=== PATIENT | female | born 1965 | race Caucasian/White ===

== ENCOUNTER 2024-12-03 14:06 | Outpatient (REF) | payer OTHER, SELFPAY ==
--- NOTE | ~2024-12-03 | XR_ITS ---
EXAMINATION: XR KNEE, LEFT CLINICAL INFORMATION: PAIN IN LEFT KNEE,OSTEOARTHRITIS OF KNEE COMPARISON: None available. TECHNIQUE: AP view both knees in standing position. Lateral and swimmer's projection of the left knee. FINDINGS: There is joint space narrowing involving mostly the medial compartments both knees with marginal osteophyte formation at the femoral condyles and tibial plateaus as well as sclerosis along the articular surfaces. Small exostosis at the quadriceps tendon insertion. No acute cortical disruption or malalignment. No suprapatellar bursa joint effusion, left knee. No lytic or blastic lesions. XR/XR knee LT 4V IMPRESSION: Tricompartmental osteoarthrosis involving mostly the medial compartment. Electronically signed by: Marcos Eavns MD 12/03/2024 03:04 PM EDT
--- OUTSIDE RECORDS SUMMARY | 2024-12-03 15:28 | XMS_ITS | Clinical Summary ---
Author Organization [facility] Address [address] [place] [address] Care Team Providers Care Animal Cruelty Investigation Supervisor Name Role Phone Unavailable Primary Care Provider Unavailabl e Allergies Active Allergy Reactions Criticality Noted Date Comments Codeine Other (See Comments) 01/09/2021 I dont remember Medications Medication Sig Dispensed Refills Start Date End Date Status miSOPROStol (CYTOTEC) 200 MCG tablet Take 200 mcg by mouth 2 (two) times a day. 0 Active pregabalin (LYRICA) 75 MG capsule Take 75 mg by mouth 2 (two) times a day. 0 Active amLODIPine (NORVASC) tablet 2.5 mg Take 2.5 mg by mouth daily. 0 Active traZODone (DESYREL) 100 MG tablet Take 100 mg by mouth every night at bedtime. 0 Active oxyCODONE HCl ER (OxyCONTIN) 10 MG T12A controlled release tablet Take 15 mg by mouth every 6 (six) hours. 0 Active meclizine (ANTIVERT) 25 MG tablet Take 25 mg by mouth 3 (three) times a day as needed. 0 Active vitamin D3 (VITAMIN D3) 25 MCG (1000 UT) tablet Take 1,000 Units by mouth daily. 0 Active acetaminophen (TYLENOL) 325 MG tablet Take 650 mg by mouth every 6 (six) hours as needed for pain. 0 Active diazePAM (VALIUM) tablet 5 mg Take 1 tablet (5 mg total) by mouth once as needed for anxiety (for 30 minutes prior to procedure) for up to 1 dose. 1 tablet 0 01/17/2021 Active Social History Tobacco Use Types Packs/Day Years Used Date Smoking Tobacco: Former Cigarettes Q uit: 2004 Smokeless Tobacco: Never Alcohol Use Standard Drinks/Week Comments Never 0 (1 standard drink = 0.6 oz pur e alcohol) Sex and Gender Information Value Date Recorded Sex Assigned at Not on file Gender Identity Not on file Sexual Orientation Not on file Job Start Date Occupation Industry Not on file Not on file Not on file Last Filed Vital Signs Vital Sign Reading Time Taken Comments Blood Pressure - - Pulse 82 01/09/2021 1:50 PM EDT Temperature 36.6 C (97.8 F) 01/09/2021 1:50 PM EDT Respiratory Rate - - Oxygen Saturation 96% 01/09/2021 1:50 PM EDT Inhaled Oxygen Concentration - - Weight 90.7 kg (200 lb) 01/09/2021 1:50 PM EDT Height 165.1 cm (5' 5 ) 01/09/2021 1:50 PM EDT Body Mass Index 33.28 01/09/2021 1:50 PM EDT Plan of Treatment Health Maintenance Due Date Last Done Comments Hepatitis C Screening 1963 Depression Screening 1975 Preventative Health Evaluation 1981 Cervical Cancer Screening (Pap Smear) 1984 Colon Cancer Screening (Colonoscopy) 2008 Breast Cancer Screening (Mammogram) 2013 Shingrix-Zoster Vaccine (1 o f 2) 2013 DTap / Tdap / Td (2 - Td or Tdap) 08/07/2017 08/07/2007 COVID-19 Vaccine (3 - 2023-2 5 season) 2024 10/30/2020, 10/09/2020 Influenza Vaccine (Season Ended) 2025 05/15/2007 RSV Adult > 60+ Yrs or (1 - 1-dose 75+ series) 2038 Hepatitis B Vaccines Aged Out No long er eligible based on patient's age to complete this topic Pneumococcal Vaccine Aged Out No long er eligible based on patient's age to complete this topic RSV Ped < 20 months Aged Out No longe r eligible based on patient's age to complete this topic
== END 2024-12-03 14:07 | disposition home or self-care (01) ==
LOC: HO.XRAY 14:06
PROVIDERS: PCP Physician Assistant Medical; Visit Provider Psychiatry & Neurology Neurology
DX: M25.562 Pain in left knee (principal); M17.12 Unilateral primary osteoarthritis, left knee
CPT/HCPCS: 73564

== ENCOUNTER → 2024-12-03 14:19 | Outpatient (BNV) | payer OTHER, SELFPAY | PROVIDERS: PCP Physician Assistant Medical; Visit Provider Radiology Diagnostic Radiology | DX: M17.12 Unilateral primary osteoarthritis, left knee (principal) | CPT/HCPCS: 73564 ==

== ENCOUNTER 2025-04-22 13:49 | Emergency (ER) | payer OTHER, SELFPAY ==
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
[2025-04-22 14:09] VITALS: BP 144/66; PULSE 79; RESP 18; TEMP 36.1; O2SAT 96; BMI 36.8
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
--- NOTE | 2025-04-22 17:57 | PC.NURSE ---
This RN cover lunch break for primary RN. Pt reports Toradol injection was ineffective and she wishes to be discharged at this time. Pt advised ED provider will be made aware. Dr. Askew notified via [employer].
[2025-04-22 18:04] VITALS: BP 144/66; PULSE 79; RESP 18; TEMP 36.1; O2SAT 96
--- OUTSIDE RECORDS SUMMARY | 2025-04-22 18:15 | XMS_ITS | Encounter Summary ---
Author Organization [facility] Address [address] [place] [address] Care Team Providers Care Critical Care Paramedic Name Role Phone Jordan Cobian Primary Care Provider [phone] Encounter Details Date Type Department Care Team ([facility] Contact Info) Description 03/26/2025 Results Follow-Up Adult Medicine [address] [phone] Jordan Cobian PA [address] [place] [phone] Social History Tobacco Use Types Packs/Day Years Used Date Smoking Tobacco: Former Cigarettes 0.3 24.9 0 1979 - 06/17/2004 Smokeless Tobacco: Never Alcohol Use Standard Drinks/Week Comments Not Currently [...] care for your loved ones. For example, early childhood or elderly care for an older adult? [...] AM EDT documented as of this encounter Plan of Treatment Upcoming Encounters Date Type Department Care Team (Late st Contact Info) Description 04/30/2025 8:30 AM EST Consult Orthopedic Surgery - [place] [address] [facility] [address] [place] [address] Shona Asher, [place] [address] [facility] [address] [place] [address] 05/28/2025 8:00 AM EST Ancillary Procedure [facility] [address] [place] [address] 06/07/2025 8:30 AM EST Office Visit Adult Medicine [facility] [address] [place] [address] Jordan Cobian PA [address] [place] [phone] documented as of this encounter Goals Goal [...] documented as of this encounter Visit Diagnoses Not on filedocumented in this encounter Additional Health Concerns Assessment Noted Time PHQ-9 Depression Total Score: 0 01/28/20 25 12:13 PM EDT documented as of this encounter Care Teams Critical Care Paramedic Relationship Specialty Start Date End Date Jordan Cobian PA [address] [place] [id number] PCP - General Internal Medicine 04/22/24 documented as of this encounter
--- OUTSIDE RECORDS SUMMARY | 2025-04-22 18:15 | XMS_ITS | Clinical Summary ---
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 01/27/2025 5:06 PM EDT [facility] Bilirubin, Urine Negative Negative LAB URINALYSIS - AUTOMATED METHOD 01/27/2025 5:06 PM EDT [facility] Blood, Urine Negative Negative LAB URINALYSIS - AUTOMATED METHOD 01/27/2025 5:06 PM EDT [facility] Urine Urine specimen obtained by clean catch procedure / Unknown Non-blood Collection / Unknown 01/27/2025 1:27 PM EDT 01/27/2025 1:27 PM EDT Jordan RYAN LAB URINE ORDERABLES Rosalee l Result Performing Organization Address [facility]/ZIP Co de Phone Number [facility] [address] [place] [address], * Culture urine (01/27/2025 1:27 PM EDT) Culture, Urine No growth 01/28/2025 10:19 AM EDT [facility] Urine Urine specimen obtained by clean catch procedure / Unknown Non-blood Collection / Unknown 01/27/2025 1:27 PM EDT 01/27/2025 1:27 PM EDT us Jordan RYAN LAB MICROBIOLOGY - GENERA L ORDERABLES Final Result [facility] [address] [place] [address], * Thyroid stimulating hormone with reflex to free t4 and free t3 (01/27/2025 1:06 PM EDT) [facility] TSH 3.20 0.40 - 4.00 mcIU/mL LAB CHEMISTRY METHOD 01/27/2025 5:57 PM EDT [facility] Blood Venous blood specimen / Unknown Venipuncture / Unknown 01/27/2025 1:06 PM EDT 01/27/2025 1:06 PM EDT Jordan RYAN LAB BLOOD ORDERABLES Rosalee holland Result [facility] [address] [place] [address], * CBC auto differential (01/27/2025 1:06 PM EDT) [facility] WBC 6.7 4.8 - 10.8 K/mcL LAB HEMETOLOGY METHOD 01/27/2025 4:44 PM EDT [facility] RBC 4.20 3.80 - 4.80 M/mcL LAB HEMETOLOGY METHOD 01/27/2025 4:44 PM EDT [facility] Hemoglobin 13.0 11.5 - 16.0 g/dL LAB HEMETOLOGY METHOD 01/27/2025 4:44 PM EDT [facility] Hematocrit 39.7 35.0 - 47.0 % LAB HEMETOLOGY METHOD 01/27/2025 4:44 PM EDT [facility] MCV 95.4 79.0 - 98.0 FL LAB HEMETOLOGY METHOD 01/27/2025 4:44 PM EDT [facility] MCH 31.3 27.0 - 32.0 pcg LAB HEMETOLOGY METHOD 01/27/2025 4:44 PM EDT [facility] MCHC 32.7 32.0 - 37.0 g/dL LAB HEMETOLOGY METHOD 01/27/2025 4:44 PM EDT [facility] RDW 13.4 11.0 - 15.0 % LAB HEMETOLOGY METHOD 01/27/2025 4:44 PM [facility] Platelets 258 130 - 400 K/mcL LAB HEMETOLOGY METHOD 01/27/2025 4:44 PM [facility] MPV 10.4 7.0 - 11.0 FL LAB HEMETOLOGY METHOD 01/27/2025 4:44 PM [facility] NRBC 0.0 <1.0 % LAB HEMETOLOGY METHOD 01/27/2025 4:44 PM [facility] NRBC Absolute 0.00 <0.10 K/mcL LAB HEMETOLOGY METHOD 01/27/2025 4:44 PM [facility] Neutrophils Relative 50.7 % LAB HEMETOLOGY METHOD 01/27/2025 4:44 PM [facility] Lymphocytes Relative 38.6 % LAB HEMETOLOGY METHOD 01/27/2025 4:44 PM [facility] Monocytes Relative 7.5 % LAB HEMETOLOGY METHOD 01/27/2025 4:44 PM [facility] Eosinophils Relative 2.3 % LAB HEMETOLOGY METHOD 01/27/2025 4:44 PM [facility] Basophils Relative 0.6 % LAB HEMETOLOGY METHOD 01/27/2025 4:44 PM [facility] Immature Granulocytes Relative 0.3 % LAB HEMETOLOGY METHOD 01/27/2025 4:44 PM [facility] Neutrophils Absolute 3.37 1.50 - 7.00 K/mcL LAB HEMETOLOGY METHOD 01/27/2025 4:44 PM EDT [facility] Lymphocytes Absolute 2.57 1.00 - 5.00 K/mcL LAB HEMETOLOGY METHOD 01/27/2025 4:44 PM EDT [facility] Monocytes Absolute 0.50 0.20 - 1.00 K/[facility] LAB HEMETOLOGY METHOD 01/27/2025 4:44 PM EDT [facility] Eosinophils Absolute 0.15 0.00 - 0.50 K/[facility] LAB HEMETOLOGY METHOD 01/27/2025 4:44 PM EDT [facility] Basophils Absolute 0.04 0.00 - 0.20 K/[facility] LAB HEMETOLOGY METHOD 01/27/2025 4:44 PM EDT [facility] Immature Granulocytes Absolute 0.02 0.00 - 0.03 K/[facility] LAB HEMETOLOGY METHOD 01/27/2025 4:44 PM EDT [facility] Blood Venous blood specimen / Unknown Venipuncture / Unknown 01/27/2025 1:06 PM EDT 01/27/2025 1:06 PM EDT Jordan RYAN LAB BLOOD ORDERABLES Rosalee l Result [facility] [address] [place] [address], * Iron and TIBC (01/27/2025 1:06 PM EDT) Iron 80 40 - 150 mcg/dL LAB CHEMISTRY METHOD 01/27/2025 5:20 PM EDT [facility] TIBC 293 250 - 450 mcg/dL LAB CHEMISTRY METHOD 01/27/2025 5:20 PM EDT [facility] Iron Saturation 27 15 - 50 % LAB CHEMISTRY METHOD 01/27/2025 5:20 PM EDT [facility] Blood Venous blood specimen / Unknown Venipuncture / Unknown 01/27/2025 1:06 PM EDT 01/27/2025 1:06 PM EDT [facility] April Cobian [place] LAB BLOOD ORDERABLES Rosalee l Result Performing Organization Address City/[facility]/ZIP Co de Phone Number [facility] [address] [place] [address], [place] [phone] * Vitamin D 25 hydroxy (01/27/2025 1:06 PM EDT) [facility] Vit D, 25-Hydroxy 48.6 30.0 - 80.0 ng/mL LAB CHEMISTRY METHOD 01/27/2025 5:56 PM EDT [facility] Blood Venous blood specimen / Unknown Venipuncture / Unknown 01/27/2025 1:06 PM EDT 01/27/2025 1:06 PM EDT Jordan Cobian [place] LAB BLOOD ORDERABLES Rosalee l Result Performing Organization Address City/[facility]/ZIP Co de Phone Number [facility] [address] [place] [address], [place] [phone] * Vitamin B12 (01/27/2025 1:06 PM EDT) [facility] Vitamin B-12 460 250 - 900 pcg/mL LAB CHEMISTRY METHOD 01/27/2025 5:20 PM EDT [facility] Blood Venous blood specimen / Unknown Venipuncture / Unknown 01/27/2025 1:06 PM EDT 01/27/2025 1:06 PM EDT [facility] April [facility] BLOOD ORDERABLES Rosalee l Result Performing Organization Address City/[facility]/ZIP Co de Phone Number [facility] [address] [place] [address], [place] [phone] * Comprehensive metabolic panel (01/27/2025 1:06 PM EDT) Sodium 140 133 - 145 mmol/L LAB CHEMISTRY METHOD 01/27/2025 5:20 PM [facility] Potassium 3.8 3.5 - 5.5 mmol/L LAB CHEMISTRY METHOD 01/27/2025 5:20 PM [facility] Chloride 108 96 - 110 mmol/L LAB CHEMISTRY METHOD 01/27/2025 5:20 PM [facility] CO2 29 21 - 32 mmol/L LAB CHEMISTRY METHOD 01/27/2025 5:20 PM [facility] Anion Gap 3 3 - 11 LAB CHEMISTRY METHOD 01/27/2025 5:20 PM [facility] Glucose 84 70 - 100 mg/dL LAB CHEMISTRY METHOD 01/27/2025 5:20 PM [facility] BUN 13 5 - 25 mg/dL LAB CHEMISTRY METHOD 01/27/2025 5:20 PM [facility] Creatinine 0.84 0.50 - 1.10 mg/dL LAB CHEMISTRY METHOD 01/27/2025 5:20 PM [facility] eGFR 79 >=60 mL/min/1. 73m2 LAB CHEMISTRY METHOD 01/27/2025 5:20 PM [facility] Comment:Calculation based on the Chronic Kidney Disease Epidemiology Collaboration (CKD-EPI) equation refit without adjustment for race. BUN/Creatinine Ratio 15.5 LAB CHEMISTRY METHOD 01/27/2025 5:20 PM [facility] Calcium 8.6 8.5 - 10.5 mg/dL LAB CHEMISTRY METHOD 01/27/2025 5:20 PM [facility] AST (SGOT) 14 10 - 42 unit/L LAB CHEMISTRY METHOD 01/27/2025 5:20 PM [facility] ALT (SGPT) 23 10 - 60 unit/L LAB CHEMISTRY METHOD 01/27/2025 5:20 PM [facility] Alkaline Phosphatase 109 42 - 121 unit/L LAB CHEMISTRY METHOD 01/27/2025 5:20 PM EDT [facility] Total Protein 7.1 6.0 - 8.0 g/dL LAB CHEMISTRY METHOD 01/27/2025 5:20 PM EDT [facility] Albumin 3.9 3.2 - 5.0 g/dL LAB CHEMISTRY METHOD 01/27/2025 5:20 PM EDT [facility] Total Bilirubin 0.3 0.0 - 1.4 mg/dL LAB CHEMISTRY METHOD 01/27/2025 5:20 PM T [facility] Blood Venous blood specimen / Unknown Venipuncture / Unknown 01/27/2025 1:06 PM EDT 01/27/2025 1:06 PM EDT us Jordan RYAN LAB BLOOD ORDERABLES Rosalee l Result [facility] [address] [place] [address], * (ABNORMAL) Lipid panel with reflex to direct LDL (09/01/2024 10:08 AM EDT) Cholesterol 169 0 - 200 mg/dL LAB CHEMISTRY METHOD 09/01/2024 2:08 PM [facility] Triglycerides 312(H) 0 - 150 mg/dL LAB CHEMISTRY METHOD 09/01/2024 2:08 PM [facility] HDL 55 >=40 mg/dL LAB CHEMISTRY METHOD 09/01/2024 2:08 PM [facility] LDL Calculated 52 0 - 100 mg/dL LAB CHEMISTRY METHOD 09/01/2024 2:08 PM [facility] VLDL Cholesterol Junior 62.4 mg/dL LAB CHEMISTRY METHOD 09/01/2024 2:08 PM EDT [facility] Non HDL Chol. (LDL+VLDL) 114 <145 mg/dL LAB CHEMISTRY METHOD 09/01/2024 2:08 PM EDT [facility] Chol/HDL Ratio 3.1 0.0 - 4.4 LAB CHEMISTRY METHOD 09/01/2024 2:08 PM EDT [facility] Blood Venous blood specimen / Unknown Venipuncture / Unknown 09/01/2024 10:08 AM EDT 09/01/2024 10:08 AM EDT Jordan RYAN LAB BLOOD ORDERABLES Rosalee l Result [facility] [address] [place] [address], [place] [phone] * Depression Screening (03/05/2024) [facility] Depression Screening abstracted [facility] Provider HEALTH MAINTENANCE Final Result * Colonoscopy (09/11/2023) [facility] Colonoscopy abstracted, no interpretation Anatomical Region Laterality Modality Other [facility] Provider HEALTH MAINTENANCE Final Result * Hepatitis C Screening (11/14/2017) [facility] Hepatitis C Screening abstracted [facility] Provider HEALTH MAINTENANCE Final Result * HIV Screening (11/08/2017) [facility] HIV Screening abstracted [facility] Provider HEALTH MAINTENANCE Final Result from Last 3 Months or Most Recently Relevant to Health Maintenance Insurance [facility] Care Teams Personal Lines Account Manager Relationship Specialty Start Date End Date Jordan Cobian PA [address] [place] [address] PCP - General Internal Medicine 04/22/24
--- OUTSIDE RECORDS SUMMARY | 2025-04-22 18:15 | XMS_ITS | Encounter Summary ---
Author Organization [facility] Address [address] [place] [address] Care Team Providers Care Synchronizer Name Role Phone Jordan Cobian Primary Care Provider [phone] Reason for Visit * Reason Onset Date Comments pt-1 04/22/2025 Encounter Details Date Type Department Care Team ([facility] Contact Info) Description 04/22/2025 Telephone Adult Medicine [address] [phone] Brigitte Sloan MA Social History Tobacco Use Types Packs/Day Years [...] your loved ones. For example, early childhood assistant or elderly care for an older adult? [...] AM EDT documented as of this encounter Progress Notes * Kelsi Veliz MA - 04/22/2025 1:38 PM EST Pt-1 submitted Tracking # [id number] 8 visits per year Shona RYAN * Brigitte Sloan MA - 04/22/2025 8:35 AM EST [facility] Medicaid Group new provider or submitter number is [id number] Verify and document patients [place] Health insurance ID # (NOT [facility] ID): [id number] Payor: [facility] FFS / Plan: [facility] / Product Type: MEDICAID [id number] Patient mailing address: [address] [place] [address] [id number] [place] [id number] Telephone Information: Pt. demographics verified? YES If not accurate, update registration. Is this a NEW request or a RENEWAL? RENEWAL Name of treating facility: [facility] Name (first & last) of treating provider? required : Pina RYAN What is the medical reason why the patient is seeing the above provider? LUMP IN HER RIGHT ARM Address/Zip code for treating provider: [address] [facility] [address] [place] [address] Phone # for treating provider: [phone] Is the provider in the [facility] (do they accept [place] Health insurance)? YES What specialtly is this provider? Ortho Surgery When is the visit scheduled for? 04/30/25 How often you will be seeing this particular provider? TBD Do you have friends or family who can transport you to this visit? NO If yes, do not complete request. Is there anything stopping you from using public transportation? If yes, explain. : YES Is there a medical reason (diagnosis) why you are unable to use public transportation? If yes, explain: yes - SHE CANT WALK Does patient carry self-administered oxygen? NO Does patient require door through door or room to room service( ex: member cannot ambulate or wait independently outside their home/facility for transportation. NO Is this is for an Adult Day Program or Suboxone clinic no If yes to above what is arrival time and what is departure time If yes to above how many days a week? Do you need a wheelchair van? NO If you use a wheelchair what is the height, width & length of the wheelchair? Do you need an escort to accompany you? If yes, explain why. NO Will you have an alternative pick-up address? NO Do you have a service animal? NO PT DOES NOT NEED RELEASE OF INFORMATION SIGNED documented in this encounter Plan of Treatment Upcoming Encounters Date Type Department Care Team (Late st Contact Info) Description 04/30/2025 8:30 AM EST Consult Orthopedic Surgery - [place] [address] [place] [phone] Shona Asher PA [address] [place] [phone] 05/28/2025 8:00 AM EST Ancillary Procedure [facility] [address] [place] [phone] 06/07/2025 8:30 AM EST Office Visit Adult Medicine [address] [phone] Jordan Cobian PA [address] [place] [phone] documented as of this encounter Goals Goal [...] documented as of this encounter Care Teams Synchronizer Relationship Specialty Start Date End Date Jordan Cobian, PA [address] [place] [address] PCP - General Internal Medicine 04/22/24 documented as of this encounter
--- OUTSIDE RECORDS SUMMARY | 2025-04-22 18:15 | XMS_ITS ---
[facility] Care Team Organization Name Specialty Phone Email Start Date End Da te [facility] Jordan Cobian Primary Care 04/24/2022
--- OUTSIDE RECORDS SUMMARY | 2025-04-22 18:15 | XMS_ITS | Clinical Summary ---
Author Organization [facility] Address [address] [place] [address] Care Team Providers Care Ophthalmic Technician Apprentice Name Role Phone Unavailable Primary Care Provider [...] Tdap) 08/07/2017 08/07/2007 COVID-19 Vaccine (3 - 2024-2 6 season) 2025 10/30/2020, 10/09/2020 Influenza Vaccine (#1) 2025 05/15/2007 RSV Adult > 60+ Yrs [...]
== END 2025-04-22 18:05 | disposition home or self-care (01) ==
PROVIDERS: Emergency Provider Emergency Medicine; PCP Physician Assistant Medical
DX: S13.4XXA Sprain of ligaments of cervical spine, initial encounter (principal); V44.6XXA Car passenger injured in collision with heavy transport vehicle or bus in traffic accident, initial encounter; Y93.9 Activity, unspecified; Y92.9 Unspecified place or not applicable; Y99.9 Unspecified external cause status; M54.50 Low back pain, unspecified
CPT/HCPCS: 72125; 96372; 99283; 99284; J1885

== ENCOUNTER → 2025-04-22 14:12 | Outpatient (BNV) | payer OTHER, SELFPAY | PROVIDERS: PCP Physician Assistant Medical; Visit Provider Radiology Diagnostic Radiology | DX: M54.2 Cervicalgia (principal); V89.2XXA Person injured in unspecified motor-vehicle accident, traffic, initial encounter | CPT/HCPCS: 72125 ==